=== PATIENT | female | born 1960 | race Hispanic/Latino ===

== ENCOUNTER 2018-05-02 09:48 | Observation (INO) | payer OTHER ==
--- OUTSIDE RECORDS SUMMARY | 2018-05-02 09:49 | XMS REPORT ---
:1960 [facility] [address] [place] [address] Dr. Arndt [address] [place] [id number] Care Team Providers Name Role Phone Unavailable Unavailable Unavailable Problems This patient has no known problems. Allergies, Adverse Reactions, Alerts This patient has no known allergies or adverse reactions. Medications This patient has no known medications.
--- NOTE | 2018-05-02 10:45 | RAD REPORT ---
EXAM DESCRIPTION: RAD - Chest Single View - 05/02/2018 10:36 am CLINICAL HISTORY: Chest pain;Cough Chest pain. COMPARISON: CHEST SINGLE VIEW dated 06/29/2008; CHEST SINGLE VIEW dated 05/08/2003 FINDINGS: Portable technique limits examination quality. The lungs are grossly clear. The heart is normal in size. No displaced fractures. IMPRESSION: No acute intrathoracic process suspected.
[2018-05-02 11:14] LABS: Absolute Lymphocytes (CBC) 1.2 K/uL (0.7-4.9); Absolute Monocytes 0.5 K/uL (0.1-1.3); Absolute Neutrophil 3.4 K/uL (1.8-8.0); Basophils % 1.4 % (0-1.3); Eosinophils % 4.5 % (0-4.4); Hematocrit 39.6 % (36.0-45.0); Lymphocytes % 22.5 % (15.3-44.8); MPV 7.2 fL (7.6-11.3); Monocytes % 9.3 % (3.3-12.3); RBC Red Blood Cell Count 4.67 M/uL (3.86-4.86)
[2018-05-02 11:16] LABS: Protime INR 1.1
--- NOTE | 2018-05-02 11:29 | ER ---
Nurse's Notes [facility] Name: Brenda Ledesma Age: 58 yrs Sex: Female : 1960 Arrival Date: 05/02/2018 Time: 09:51 Bed 20 Private MD: Diagnosis: Chest pain, unspecified;Lupus erythematosus Presentation: 05/02 09:51 Presenting complaint: EMS states: CHEST PAIN SINCE THIS AM. Transition of care: patient bp was not received from another setting of care. Onset of symptoms is unknown. Risk Assessment: Do you want to hurt yourself or someone else? Patient reports no desire to harm self or others. Initial Sepsis Screen: Does the patient meet any 2 criteria? No. Patient's initial sepsis screen is negative. Does the patient have a suspected source of infection? No. Patient's initial sepsis screen is negative. Care prior to arrival: Medication(s) given: ASA, 81 mg, x 4, IV initiated. 20 GA, in the left antecubital area. 09:51 Method Of Arrival: EMS: [facility] bp 09:51 Acuity: GLENNA 2 bp Triage Assessment: 09:56 General: Appears in no apparent distress. comfortable, obese, Behavior is cooperative, bp appropriate for age, anxious. Pain: Complains of pain in chest Pain currently is 4 out of 10 on a pain scale. Quality of pain is described as pressure. EENT: No signs and/or symptoms were reported regarding the EENT system. Neuro: Level of Consciousness is awake, alert, obeys commands, Oriented to person, place, time, situation, Appropriate for age. Cardiovascular: Rhythm is sinus rhythm. Respiratory: Airway is patent Respiratory effort is even, unlabored, Respiratory pattern is regular, symmetrical. GI: No signs and/or symptoms were reported involving the gastrointestinal system. : No signs and/or symptoms were reported regarding the genitourinary system. Derm: No deficits noted. Musculoskeletal: No deficits noted. Historical: - Allergies: No Known Allergies; bp - Home Meds: : Claritin 10 mg Oral tab 1 tab once daily [Active]; clonidine HCl 0.1 mg Oral tab 1 tab bp 2 times per day [Active]; clopidogrel 75 mg oral tab 1 tab once daily [Active]; - PMHx: : CVA; Lupus; GERD; Hypertension; bp - Immunization history:: Adult Immunizations up to date. - Social history:: Smoking status: Patient/guardian denies using tobacco. - Ebola Screening: : Patient negative for fever greater than or equal to 101.5 degrees Fahrenheit, and additional compatible Ebola Virus Disease symptoms Patient denies exposure to infectious person Patient denies travel to an Ebola-affected area in the 21 days before illness onset No symptoms or risks identified at this time. - Family history:: not pertinent. Screenin:02 Abuse screen: Denies threats or abuse. Denies injuries from another. Nutritional bp screening: No deficits noted. Tuberculosis screening: No symptoms or risk factors identified. Fall Risk No fall in past 12 months (0 pts). Secondary diagnosis (15 points) CVA, IV access (20 points). Ambulatory Aid- None/Bed Rest/Nurse Assist (0 pts). Gait- Impaired (20 pts.). Mental Status- Oriented to own ability (0 pts). Total Yen Fall Scale indicates High Risk Score (45 or more points). Fall prevention measures have been instituted. Side Rails Up X 2 Placed Close to Nursing Station 1:1 Attendant Assigned Frequent Obs/Assessments Occuring As available patient and family educated on Fall Prevention Program and Strategies. Assessment: 10:01 General: SEE TRIAGE NOTE. Pain: Complains of pain in chest Pain does not radiate. Pain bp began THIS AM. 11:00 Reassessment: PT TO CT, RESULTS PENDING. bp 12:33 Reassessment: ALL CURRENT ORDERS COMPLETE, DISPO PENDING. bp Vital Signs: 09:56 BP 109 / 54; Pulse 65; Resp 14; Temp 97; Pulse Ox 97% ; Weight 81.65 kg (R); bp 10:46 BP 119 / 96; Pulse 69; Resp 18; Temp 98.6(O); Pulse Ox 97% on R/A; mh5 12:30 BP 113 / 61; Pulse 67; Resp 14; Pulse Ox 97% ; bp 13:51 BP 103 / 48; Pulse 67; Resp 14; Pulse Ox 95% ; bp ED Course: 09:51 Patient arrived in ED. bp 09:51 Pawan French MD is Attending Physician. raina 09:52 Triage completed. bp 10:01 Arm band placed on. bp 10:02 EKG done, by photovoltaic fabrication technician. reviewed by Pawan French MD. at1 10:04 Maintain EMS IV. Dressing intact. Good blood return noted. Site clean \T\ dry. Gauge \T\ bp site: 20 GAUGE R AC. 10:05 Patient has correct armband on for positive identification. Placed in gown. Bed in low bp position. Call light in reach. Side rails up X2. surveillance system monitor on. Pulse ox on. NIBP on. 10:23 Herrera Cisneros, RN is Primary Nurse. bp 10:36 X-ray completed. Portable x-ray completed in exam room. Patient tolerated procedure jb2 well. 10:38 Chest Single View In Process Unspecified. EDMS 11:28 Sherwin Chen DO is Hospitalizing Provider. raina 12:00 US Extremity Venous W Compression Pardeep In Process Unspecified. EDMS 12:09 CT completed. Patient tolerated procedure well. Patient moved back from CT. vr 12:11 CT Chest For PE Angio In Process Unspecified. EDMS 14:05 No provider procedures requiring assistance completed. Patient admitted, IV remains in bp place. Patient maintains SpO2 saturation greater than 95% on room air. Administered Medications: 10:18 CANCELLED (Duplicate Order): Aspirin 162 mg PO once raina 10:30 Drug: NS 0.9% 1000 ml Route: IV; Rate: 125 ml/hr; Site: left antecubital; bp 13:52 Follow up: IV Status: Infusion continued upon admission; IV Intake: 375ml bp 11:45 Drug: Lovenox 80 mg Route: Sub-Q; Site: right lower abdomen; bp 12:30 Follow up: Response: No adverse reaction bp Intake: 13:52 IV: 375ml; Total: 375ml. bp Outcome: 11:28 Decision to Hospitalize by Provider. raina 14:05 Admitted to Tele accompanied by tech, via wheelchair, room 406, with chart, Report bp called to ADRIANNA RAUSCH 14:05 Condition: stable 14:05 Instructed on the need for admit. 14:33 Patient left the ED. iw Signatures: Dispatcher [employer] EDPawan Stovall MD MD cha Buechter, Jesse jb2 Debi Golden, RN RN Christy Hernandez Amanda, recreational therapy aide EKG Tat1 Adrianna Toledo 5 Herrera Cisneros, RN RN bp
--- NOTE | 2018-05-02 11:29 | EDPHYS ---
Physician Documentation [facility] Name: Brenda Ledesma Age: 58 yrs Sex: Female : 1960 Arrival Date: 05/02/2018 Time: 09:51 Bed 20 Private MD: ED Physician Pawan French HPI: 05/02 11:24 This 58 yrs old Female presents to ER via EMS with complaints of Chest Pain. raina 11:24 The patient or guardian reports chest pain that is located primarily in the anterior [facility] chest wall. Onset: this morning, today. The pain does not radiate. Associated signs and symptoms: The patient has no apparent associated signs or symptoms. The chest pain is described as a pressure. Duration: The patient or guardian reports a single episode, that is still ongoing, but improving. Severity of pain: At its worst the pain was moderate in the emergency department the pain has improved moderately. It is unknown whether or not the patient has had similar symptoms in the past. Historical: - Allergies: 09:56 No Known Allergies; bp - Home Meds: 09:56 Claritin 10 mg Oral tab 1 tab once daily [Active]; clonidine HCl 0.1 mg Oral tab 1 tab bp 2 times per day [Active]; clopidogrel 75 mg oral tab 1 tab once daily [Active]; - PMHx: 09:56 CVA; Lupus; GERD; Hypertension; bp - Immunization history:: Adult Immunizations up to date. - Social history:: Smoking status: Patient/guardian denies using tobacco. - Ebola Screening: : Patient negative for fever greater than or equal to 101.5 degrees Fahrenheit, and additional compatible Ebola Virus Disease symptoms Patient denies exposure to infectious person Patient denies travel to an Ebola-affected area in the 21 days before illness onset No symptoms or risks identified at this time. - Family history:: not pertinent. ROS: 11:24 Constitutional: Negative for fever, chills, and weight loss, Eyes: Negative for injury, raina pain, redness, and discharge, ENT: Negative for injury, pain, and discharge, Neck: Negative for injury, pain, and swelling, Respiratory: Negative for shortness of breath, cough, wheezing, and pleuritic chest pain, Abdomen/GI: Negative for abdominal pain, nausea, vomiting, diarrhea, and constipation, Back: Negative for injury and pain, : Negative for injury, bleeding, discharge, and swelling, MS/Extremity: Negative for injury and deformity, Skin: Negative for injury, rash, and discoloration, Neuro: Negative for headache, weakness, numbness, tingling, and seizure, Psych: Negative for depression, anxiety, suicide ideation, homicidal ideation, and hallucinations, Allergy/Immunology: Negative for hives, rash, and allergies, Endocrine: Negative for neck swelling, polydipsia, polyuria, polyphagia, and marked weight changes, Hematologic/Lymphatic: Negative for swollen nodes, abnormal bleeding, and unusual bruising. 11:24 Cardiovascular: Positive for chest pain. Exam: 11:24 Constitutional: This is a well developed, well nourished patient who is awake, alert, raina and in no acute distress. Head/Face: Normocephalic, atraumatic. Eyes: Pupils equal round and reactive to light, extra-ocular motions intact. Lids and lashes normal. Conjunctiva and sclera are non-icteric and not injected. Cornea within normal limits. Periorbital areas with no swelling, redness, or edema. ENT: Nares patent. No nasal discharge, no septal abnormalities noted. Tympanic membranes are normal and external auditory canals are clear. Oropharynx with no redness, swelling, or masses, exudates, or evidence of obstruction, uvula midline. Mucous membranes moist. Neck: Trachea midline, no thyromegaly or masses palpated, and no cervical lymphadenopathy. Supple, full range of motion without nuchal rigidity, or vertebral point tenderness. No Meningismus. Chest/axilla: Normal chest wall appearance and motion. Nontender with no deformity. No lesions are appreciated. Cardiovascular: Regular rate and rhythm with a normal S1 and S2. No gallops, murmurs, or rubs. Normal PMI, no JVD. No pulse deficits. Respiratory: Lungs have equal breath sounds bilaterally, clear to auscultation and percussion. No rales, rhonchi or wheezes noted. No increased work of breathing, no retractions or nasal flaring. Abdomen/GI: Soft, non-tender, with normal bowel sounds. No distension or tympany. No guarding or rebound. No evidence of tenderness throughout. Back: No spinal tenderness. No costovertebral tenderness. Full range of motion. Skin: Warm, dry with normal turgor. Normal color with no rashes, no lesions, and no evidence of cellulitis. MS/ Extremity: Pulses equal, no cyanosis. Neurovascular intact. Full, normal range of motion. Neuro: Awake and alert, GCS 15, oriented to person, place, time, and situation. Cranial nerves II-XII grossly intact. Motor strength 5/5 in all extremities. Sensory grossly intact. Cerebellar exam normal. Normal gait. Psych: Awake, alert, with orientation to person, place and time. Behavior, mood, and affect are within normal limits. Vital Signs: 09:56 BP 109 / 54; Pulse 65; Resp 14; Temp 97; Pulse Ox 97% ; Weight 81.65 kg (R); bp 10:46 BP 119 / 96; Pulse 69; Resp 18; Temp 98.6(O); Pulse Ox 97% on R/A; mh5 12:30 BP 113 / 61; Pulse 67; Resp 14; Pulse Ox 97% ; bp 13:51 BP 103 / 48; Pulse 67; Resp 14; Pulse Ox 95% ; bp MDM: 09:51 Patient medically screened. [facility] 11:26 Data reviewed: vital signs, nurses notes, lab test result(s), EKG, radiologic studies, raina plain films. 05/02 10:17 Order name: Basic Metabolic Panel; Complete Time: 13:27 [facility] 05/02 10:17 Order name: CBC with Diff; Complete Time: 13:27 [facility] 05/02 10:17 Order name: LFT's; Complete Time: 13:27 [facility] 05/02 10:17 Order name: Magnesium; Complete Time: 13:27 [facility] 05/02 10:17 Order name: NT PRO-BNP; Complete Time: 13:27 [facility] 05/02 10:17 Order name: PT-INR; Complete Time: 13:27 [facility] 05/02 10:17 Order name: Troponin (emerg Dept Use Only); Complete Time: 13:27 [facility] 05/02 10:17 Order name: Lipase; Complete Time: 13:27 [facility] 05/02 10:17 Order name: Blood Culture Adult (2) [facility] 05/02 10:17 Order name: Urine Culture [facility] 05/02 10:19 Order name: D-Dimer; Complete Time: 13:27 [facility] 05/02 10:23 Order name: Blood Culture EDUT 05/02 11:41 Order name: Urine Dipstick--Ancillary (enter results); Complete Time: 13:27 em1 05/02 10:17 Order name: XRAY Chest (1 view) [facility] 05/02 10:17 Order name: EKG; Complete Time: 10:19 [facility] 05/02 10:17 Order name: Cardiac monitoring; Complete Time: 10:24 [facility] 05/02 10:17 Order name: EKG - Nurse/Tech; Complete Time: 10:24 [facility] 05/02 10:17 Order name: IV Saline Lock; Complete Time: 10:25 [facility] 05/02 10:17 Order name: Labs collected and sent; Complete Time: 12:03 [facility] 05/02 10:17 Order name: O2 Per Protocol; Complete Time: 10:24 [facility] 05/02 10:17 Order name: O2 Sat Monitoring; Complete Time: 10:24 [facility] 05/02 10:17 Order name: Urine Dipstick-Ancillary (obtain specimen); Complete Time: 11:40 [facility] 05/02 10:23 Order name: Chest Single View; Complete Time: 11:24 EDUT 05/02 10:23 Order name: EKG Electrocardiogram [facility] 05/02 11:30 Order name: CT Chest For PE Angio; Complete Time: 13:27 [facility] 05/02 11:30 Order name: US Extremity Venous W Compression Pardeep; Complete Time: 13:27 [facility] Administered Medications: 10:18 CANCELLED (Duplicate Order): Aspirin 162 mg PO once [facility] 10:30 Drug: NS 0.9% 1000 ml Route: IV; Rate: 125 ml/hr; Site: left antecubital; bp 13:52 Follow up: IV Status: Infusion continued upon admission; IV Intake: 375ml bp 11:45 Drug: Lovenox 80 mg Route: Sub-Q; Site: right lower abdomen; bp 12:30 Follow up: Response: No adverse reaction bp Disposition: 05/02/18 11:28 Hospitalization ordered by Sherwin Chen for Observation. Preliminary diagnosis are Chest pain, unspecified, Lupus erythematosus. - Bed requested for Telemetry/MedSurg (observation). - Status is Observation. iw - Condition is Stable. - Problem is new. - Symptoms have improved. UTI on Admission? No Signatures: Dispatcher [employer] EDUT Pawan French MD MD cha Williams, Irene, RN MIRACLE iw Yousuf Toledo em1 Blayne, Herrera, RN RN bp Corrections: (The following items were deleted from the chart) 10:18 10:17 Aspirin 162 mg PO once ordered. raina raina 10:23 10:19 Basic Metabolic Panel ordered. EDMS EDMS 13:37 11:28 Hospitalization Ordered by Sherwin Chen DO for Observation. Preliminary em1 diagnosis is Chest pain, unspecified; Lupus erythematosus. Bed requested for Telemetry/MedSurg (observation). Status is Observation. Condition is Stable. Problem is new. Symptoms have improved. UTI on Admission? No. raina 14:33 13:37 05/02/2018 11:28 Hospitalization Ordered by Sherwin Chen DO for Observation. iw Preliminary diagnosis is Chest pain, unspecified; Lupus erythematosus. Bed requested for Telemetry/MedSurg (observation). Status is Observation. Condition is Stable. Problem is new. Symptoms have improved. UTI on Admission? No. em1
[2018-05-02 11:35] LABS: ALT/SGPT 32 U/L (12-78); AST/SGOT 28 U/L (15-37); Albumin 3.4 g/dL (3.4-5.0); Alkaline Phosphatase 76 U/L (45-117); BUN Blood Urea Nitrogen 10 mg/dL (7-18); Bicarbonate 30 mmol/L (21-32); Bilirubin Direct < 0.1 mg/dL (0-0.2); Bilirubin Total 0.3 mg/dL (0.2-1.0); Glucose Level 92 mg/dL (74-106); Lipase 201 U/L (73-393); NT PRO-BNP 33 pg/mL (<125); Potassium 3.7 mmol/L (3.5-5.1); Protein, Total 7.7 g/dL (6.4-8.2); Sodium Level 144 mmol/L (136-145); Troponin (Emerg Dept Use Only) < 0.02 ng/mL (0.0-0.045)
--- NOTE | 2018-05-02 12:04 | EKG ---
Test Date: 2018-05-02 Test Time: 09:55:11 Mold Making Supervisor: CYNTHIA MEASUREMENT RESULTS: Intervals: Rate: 68 [place]: 158 QRSD: 80 QT: 398 QTc: 423 [place]: P: 23 [place]: 158 QRS: 65 T: 48 INTERPRETIVE STATEMENTS: Normal sinus rhythm with sinus arrhythmia Normal ECG Compared to ECG 06/30/2008 05:55:47 No significant changes Electronically Signed On 05-02-18 12:02:45 PIECE DYER by Andres Jiménez
--- NOTE | 2018-05-02 12:06 | RAD REPORT ---
EXAM DESCRIPTION: US - Extrem Venous W Compress Pardeep - 05/02/2018 12:00 pm CLINICAL HISTORY: PAIN Bilateral leg edema and swelling. COMPARISON: No comparisons TECHNIQUE: Real-time sonographic interrogation of the left and right lower extremity deep venous sys tems was performed. FINDINGS: Normal compressibility, flow augmentation, phasic flow and spontaneous flow is identified in both the left and right lower extremity deep venous systems. IMPRESSION: No sonographic evidence of left or right lower extremity deep venous thrombosis.
[2018-05-02 12:09] LABS: Urine Blood NEGATIVE (NEG); Urine Glucose NEGATIVE (NEG); Urine Protein 1+ (NEG); Urine pH 5.5 (5.0-7.0)
[2018-05-02] MEDS ORDERED: NA CHLORIDE 0.9% 1,000 ML ONE (12:10)
[2018-05-02] MEDS ORDERED: ENOXAPARIN 80 MG/0.8 ML SQ ONE (12:10)
--- NOTE | 2018-05-02 12:19 | RAD REPORT ---
EXAM DESCRIPTION: CT - Chest For Pe Angio - 05/02/2018 12:11 pm CLINICAL HISTORY: Chest pain. CHEST PAIN COMPARISON: No comparisons TECHNIQUE: CT angiogram of the pulmonary arteries was performed with MIP. All CT scans are performed using dose optimization technique as appropriate and may include automated exposure control or mA/KV adjustment according to patient size. FINDINGS: No evidence of pulmonary thromboembolism. No acute aortic finding demonstrated. The lungs are clear. No significant pericardial or pleural fluid. No concerning bony finding. Fatty liver. IMPRESSION: No evidence of pulmonary thromboembolism. No acute lung findings.
--- NOTE | 2018-05-02 13:47 | P.HP ---
Certification for Inpatient Patient admitted to: Observation With expected LOS: <2 Midnights Patient will require the following post-hospital care: Other (assisted) Practitioner: I am a practitioner with admitting privileges, knowledge of patient current condition, hospital course, and medical plan of care. Services: Services provided to patient in accordance with Admission requirements found in Title 42 Section 412.3 of the Code of Federal Regulations Patient History Date of Service: 05/02/18 Primary Care Provider: MELANIA physician Reason for admission: Chest pain History of Present Illness: 58-year-old female presented to the emergency room with chest pain. Patient with history of aphasia related to prior stroke. Patient also with history of hypertension. Patient reports chest pain to the left side. No significant nausea or vomiting. She does report some palpitations. Otherwise no other complaints noted by the patient. [facility] jail to further evaluate. Upon initial valuation the emergency room. White count within normal range. Sodium 144, potassium 3.7, BUN of 10, creatinine 0.7 with a GFR of 81. Glucose 92. Initial troponin unremarkable. Urinalysis unremarkable. D-dimer elevated. Chest x-ray unremarkable. CT angiogram of the chest shows no pulmonary embolism or pneumonia. Venous Doppler negative. Due to the nature of her symptoms the patient was admitted for further evaluation. When I saw the patient ER, patient with aphasia but able to communicate with writing and hand gestures. History was difficult due to this. I was able to get in contact with a family member. He reports that the patient is currently in a jail. He reports family does not keep close contact with her since she is in the jail. He reports that he would try to get a hold of her son who looks out after her from time to time. Home medications list reviewed: No - Past Medical/Surgical History Diabetic: No -: History of CVA with residual aphasia -: Hypertension -: CAD Past Surgical History: Unable to obtain Psychosocial/ Personal History: Patient lives in a jail. - Family History Family History: Reviewed- Non-Contributory - Social History Smoking Status: Never smoker Alcohol use: No CD- Drugs: No Caffeine use: No Place of Residence: Care Home Review of Systems General: As per HPI Eyes: Unremarkable ENT: Unremarkable Respiratory: Unremarkable Cardiovascular: Chest Pain, Palpitations, As per HPI Gastrointestinal: Unremarkable Genitourinary: Unremarkable Musculoskeletal: Unremarkable Integumentary: Unremarkable Neurological: Unremarkable Lymphatics: Unremarkable Physical Examination - Physical Exam General: Alert, In no apparent distress, Cooperative HEENT: Atraumatic, Mucous membr. moist/pink, Other (Patient with residual aphasia) Neck: Supple Respiratory: Clear to auscultation bilaterally, Normal air movement Cardiovascular: Normal pulses, Regular rate/rhythm Gastrointestinal: Normal bowel sounds, Soft and benign, Non-distended, No tenderness, No masses, No rebound, No guarding Musculoskeletal: No erythema, No tenderness, No warmth Integumentary: No tenderness/swelling, No erythema, No warmth, No cyanosis Neurological: Normal speech, Normal strength at 5/5 x4 extr, Normal tone, Normal affect - Studies Laboratory Data (last 24 hrs) 05/02/18 10:45: PT 13.0 H, INR 1.10 05/02/18 10:45: Sodium 144, Potassium 3.7, BUN 10, Creatinine 0.73, Glucose 92, Magnesium 2.0, Total Bilirubin 0.3, AST 28, ALT 32, Alkaline Phosphatase 76, Lipase 201 05/02/18 10:05: WBC 5.4, Hgb 13.5, Hct 39.6, Plt Count 355 Assessment and Plan - Plan Impression: Chest pain, atypical Hypertension History of CAD History of CVA with residual aphasia Plan: Chest pain, atypical: Will continue monitor patient on telemetry. Will monitor cardiac enzymes. Will obtain echocardiogram. Will also order stress test to further assess. Cardiology consulted. Will place on beta alaina. Will need to obtain home medications from jail. Will continue with aspirin, DVT prophylaxis-Lovenox, Lipitor. Hypertension: Continue as above. Will need to obtain medications from jail. History of CAD: Patient reports a history of CAD but no prior stent or surgery. History of CVA with residual aphasia: Patient with residual aphasia. This makes communicating difficult. Overall stable. Discharge Plan: Home Plan to discharge in: 24 Hours - Advance Directives Does patient have a Living Will: No Does patient have a Durable POA for Healthcare: No - Code Status/Comfort Care Code Status Assessed: Yes (Patient full code.) Time Spent Managing Pts Care (In Minutes): 55
[2018-05-02] MEDS ORDERED: MORPHINE 4 MG/ML SYR IV PRN (15:12)
[2018-05-02] MEDS ORDERED: ONDANSETRON 4 MG/2 ML VIAL IV PRN (15:12)
[2018-05-02] MEDS ORDERED: ACETAMINOPHEN 500 MG TAB PO PRN (15:12)
[2018-05-02] MEDS ORDERED: NITROGLYCERIN 0.4 MG/TAB SL PRN (15:25)
[2018-05-02] MEDS: ENOXAPARIN 40 MG/0.4 ML SQ SCH ×2 (16:00→17:10)
[2018-05-02 16:08] LABS: CKMB Creatine Kinase MB 1.6 ng/mL (0.3-3.6); Creatine Phosphokinase 97 U/L (26-192); Troponin I < 0.02 ng/mL (0.0-0.045)
[2018-05-02] MEDS: METOPROLOL TAR 25 MG TAB PO SCH (17:11)
[2018-05-02] MEDS ORDERED: ATORVASTATIN 40 MG TAB PO SCH (21:00)
[2018-05-03 00:21] LABS: CKMB Creatine Kinase MB 1.4 ng/mL (0.3-3.6); Creatine Phosphokinase 87 U/L (26-192); Troponin I < 0.02 ng/mL (0.0-0.045)
[2018-05-03 06:04] LABS: Absolute Lymphocytes (CBC) 1.6 K/uL (0.7-4.9); Absolute Monocytes 0.5 K/uL (0.1-1.3); Absolute Neutrophil 3.4 K/uL (1.8-8.0); Basophils % 1.5 % (0-1.3); Eosinophils % 4.5 % (0-4.4); Hematocrit 40.4 % (36.0-45.0); Lymphocytes % 26.5 % (15.3-44.8); MPV 7.4 fL (7.6-11.3); Monocytes % 9.1 % (3.3-12.3); RBC Red Blood Cell Count 4.74 M/uL (3.86-4.86)
[2018-05-03 06:23] LABS: Potassium 3.8 mmol/L (3.5-5.1)
[2018-05-03] MEDS ORDERED: POTASSIUM CL SA 10 MEQ TAB PO ONE (06:29)
[2018-05-03] MEDS ORDERED: REGADENOSON 0.4 MG/5 ML SYR IV ONE (08:30)
[2018-05-03] MEDS ORDERED: ASPIRIN EC 81 MG TAB PO SCH (09:00)
[2018-05-03] MEDS: ENOXAPARIN 40 MG/0.4 ML SQ SCH (10:22)
[2018-05-03] MEDS: METOPROLOL TAR 25 MG TAB PO SCH (10:23)
--- NOTE | 2018-05-03 11:15 | RAD REPORT ---
EXAM DESCRIPTION: NM - Rest Stress Cardiac Imaging - 05/03/2018 10:34 am CLINICAL HISTORY: Chest pain. COMPARISON: 2008 TECHNIQUE: The patient was administered approximately 10mCi of Tc 99m Sestamibi prior to resting SPE CT imaging of the heart. The patient was then administered approximately 30 mCi of Tc 99m Sestamibi f ollowing exercise or pharmacologic stress. Multiplanar SPECT images were reviewed. FINDINGS: There is uniformity of radiotracer uptake involving the entire left ventricular myocardiu m. The left ventricular ejection fraction equals 62% IMPRESSION: There is no evidence of a myocardial perfusion defect
--- NOTE | 2018-05-03 13:37 | CON ---
Chief Complaint: Chest pain. History Of Present Illness: Ms. Ledesma [facility] in a [facility]. She is aphasic, expressive aphasia fro m a stroke. She was sent to the emergency room by the [facility] staff. They were concerned she w as telling them she had chest pain. She seems to point to her chest, says sometimes she feels uncomf ortable. She has never had myocardial infarction. She has had strokes. Never had any stents or byp ass surgeries. She takes Mylanta, acetaminophen, clonidine, Plavix, vitamin B12, Flonase, multivitam ins, and loratadine. She has never had any vascular surgery in the past. Her strokes have been of u ncertain cause. The patient also says sometimes she feels her heart fluttering, so at the time she i s discharged, she should probably be given an event monitor or have an implanted LINQ device to see i f her stroke might have been caused by atrial fibrillation. We do not see any atrial fibrillation si nce she has been here. Physical Examination: General: She is alert, oriented, aphasic, but she understands speech, responds nonverbally. She is 5 feet 5 inches, 180 pounds. Lungs: Clear. Heart: Within normal limits. Abdomen: Soft. Extremities: Normal pulses. The patient denies tobacco use. Laboratory Data: Her EKG is normal. Telemetry shows no atrial fibrillation. All of her laboratory exams are negative for this being an acute coronary syndrome. Recommendation: She is already scheduled for echocardiogram and nuclear stress test. If those are n ormal, she could be discharged. I would recommend an event monitor, see if she has atrial fibrillati on causing her symptoms. She is not in atrial fibrillation now. It is possible that she has paroxysmal atrial fibrillation that resolved before she got here. TI/ESPERANZA Voice ID: [id number] Report ID: [id number]
--- NOTE | 2018-05-03 13:57 | P.DS ---
Admission Date: 05/02/18 Discharge Date: 05/03/18 Primary Care Provider: MELANIA physician Disposition: TRANSFER TO [facility] Discharge Condition: GOOD Reason for Admission: Chest pain Consultations: Cardiology: Dr. Jiménez Procedures: CT Scan: COMPARISON: No comparisons TECHNIQUE: CT angiogram of the pulmonary arteries was performed with MIP. All CT scans are performed using dose optimization technique as appropriate and may include automated exposure control or mA/KV adjustment according to patient size. FINDINGS: No evidence of pulmonary thromboembolism. No acute aortic finding demonstrated. The lungs are clear. No significant pericardial or pleural fluid. No concerning bony finding. Fatty liver. IMPRESSION: No evidence of pulmonary thromboembolism. No acute lung findings. Venous doppler: COMPARISON: No comparisons TECHNIQUE: Real-time sonographic interrogation of the left and right lower extremity deep venous systems was performed. FINDINGS: Normal compressibility, flow augmentation, phasic flow and spontaneous flow is identified in both the left and right lower extremity deep venous systems. IMPRESSION: No sonographic evidence of left or right lower extremity deep venous thrombosis. Cardiac Stress test: COMPARISON: 2009 TECHNIQUE: The patient was administered approximately 10mCi of Tc 99m Sestamibi prior to resting SPECT imaging of the heart. The patient was then administered approximately 30 mCi of Tc 99m Sestamibi following exercise or pharmacologic stress. Multiplanar SPECT images were reviewed. FINDINGS: There is uniformity of radiotracer uptake involving the entire left ventricular myocardium. The left ventricular ejection fraction equals 62% IMPRESSION: There is no evidence of a myocardial perfusion defect Medical problem list: Chest pain, atypical Hypertension History of CVA with residual expressive aphasia GERD Chronic allergic rhinitis Brief History of Present Illness: 58-year-old female presented to the emergency room with chest pain. Patient with history of aphasia related to prior stroke. Patient also with history of hypertension. Patient reports chest pain to the left side. No significant nausea or vomiting. She does report some palpitations. Otherwise no other complaints noted by the patient. [facility] to further evaluate. Upon initial valuation the emergency room. White count within normal range. Sodium 144, potassium 3.7, BUN of 10, creatinine 0.7 with a GFR of 81. Glucose 92. Initial troponin unremarkable. Urinalysis unremarkable. D-dimer elevated. Chest x-ray unremarkable. CT angiogram of the chest shows no pulmonary embolism or pneumonia. Venous Doppler negative. Due to the nature of her symptoms the patient was admitted for further evaluation. When I saw the patient ER, patient with aphasia but able to communicate with writing and hand gestures. History was difficult due to this. I was able to get in contact with a family member. He reports that the patient is currently in a [facility]. He reports family does not keep close contact with her since she is in the [facility]. He reports that he would try to get a hold of her son who looks out after her from time to time. Hospital Course: Patient presented with chest pain. This was atypical. Cardiac enzymes unremarkable. Patient seen and evaluated by Cardiology. Patient had cardiac stress tests and echocardiogram. Cardiac stress test showed no stress-induced ischemia. Cardiology mentions that the patient may have underlying a arrhythmia or paroxysmally atrial fibrillation. No atrial fibrillation was identified during her stay. Patient will return to the [facility]. Patient will continue with her Plavix 75 mg daily. Cardiology recommends that she be followed up with cardiology within 1-2 weeks. Patient will need Holter monitor is well to further evaluate. Will see if this can be arranged prior to discharge. Patient with hypertension. Medications adjusted due to her stay. Clonidine discontinued. Patient now on metoprolol. At discharge she will continue with metoprolol 12.5 mg 1 pill twice daily. Recommendation is to maintain blood pressures less 150/80. Further adjustment can be done by [facility] physician. Patient with history of CVA with residual expressive aphasia. This is currently stable at this time. Patient may continue with Plavix 75 mg daily. Patient will also be placed on Lipitor 40 mg daily. Patient likely with GERD. Patient may continue with Pepcid 20 mg 1 pill twice daily. Patient has chronic allergic rhinitis. Patient may continue with Claritin and nasal spray as directed. Vital Signs/Physical Exam: Temp Pulse Resp BP Pulse Ox 97.2 F 58 16 146/71 H 96 05/03/18 08:00 05/03/18 08:00 05/03/18 08:00 05/03/18 08:00 05/03/18 08:00 General: Alert, In no apparent distress, Cooperative HEENT: Atraumatic Neck: Supple Respiratory: Clear to auscultation bilaterally, Normal air movement Cardiovascular: Normal pulses, Regular rate/rhythm Gastrointestinal: Normal bowel sounds, Soft and benign, Non-distended, No tenderness, No masses, No rebound, No guarding Musculoskeletal: No erythema, No tenderness, No warmth Integumentary: No tenderness/swelling, No erythema, No warmth, No cyanosis Neurological: Normal strength at 5/5 x4 extr, Normal tone, Normal affect, Abnormal speech (Residual expressive aphasia) Laboratory Data at Discharge: WBC 5.9 K/uL (4.3-10.9) 05/03/18 05:41 Hgb 13.8 g/dL (12.0-15.0) 05/03/18 05:41 Hct 40.4 % (36.0-45.0) 05/03/18 05:41 Plt Count 359 K/uL (152-406) 05/03/18 05:41 PT 13.0 SECONDS (9.5-12.5) H 05/02/18 10:45 INR 1.10 05/02/18 10:45 Sodium 143 mmol/L (136-145) 05/03/18 05:41 Potassium 3.8 mmol/L (3.5-5.1) 05/03/18 05:41 BUN 13 mg/dL (7-18) 05/03/18 05:41 Creatinine 0.72 mg/dL (0.55-1.3) 05/03/18 05:41 Glucose 93 mg/dL (74-106) 05/03/18 05:41 Magnesium 2.0 mg/dL (1.8-2.4) 05/03/18 05:41 Total Bilirubin 0.3 mg/dL (0.2-1.0) 05/02/18 10:45 AST 28 U/L (15-37) 05/02/18 10:45 ALT 32 U/L (12-78) 05/02/18 10:45 Alkaline Phosphatase 76 U/L (45-117) 05/02/18 10:45 Troponin I < 0.02 ng/mL (0.0-0.045) 05/02/18 23:13 Triglycerides 119 mg/dL (<150) 05/03/18 05:41 Cholesterol 165 mg/dL (<200) 05/03/18 05:41 HDL Cholesterol 41 mg/dL (40-60) 05/03/18 05:41 Cholesterol/HDL Ratio 4.02 05/03/18 05:41 Lipase 201 U/L (73-393) 05/02/18 10:45 Home Medications: Acetaminophen 2 cap PO Q4H PRN 05/02/18 Acetaminophen with Codeine [Acetaminophen-Cod #3 Tablet] 1 tab PO Q4H PRN Clopidogrel Bisulfate [Plavix*] 75 mg PO DAILY 05/02/18 Cyanocobalamin (Vitamin B-12) [B-12] 500 mcg PO DAILY 05/02/18 Fluticasone Propionate [Flonase Allergy Relief] 1 puff IH DAILY 05/02/18 Loratadine [Claritin*] 10 mg PO DAILY 05/02/18 Multivitamin with Minerals [Multivitamins with Minerals] 1 tab PO DAILY Mylanta 30 ml PO Q8H PRN 05/02/18 Atorvastatin Calcium [Lipitor] 40 mg PO BEDTIME #30 tab 05/03/18 Famotidine [Pepcid] 20 mg PO BID #60 tab 05/03/18 Metoprolol Tartrate [Lopressor*] 12.5 mg PO BID 6AM 6PM #30 tab 05/03/18 New Medications: Atorvastatin Calcium [Lipitor] 40 mg PO BEDTIME #30 tab Famotidine [Pepcid] 20 mg PO BID #60 tab Metoprolol Tartrate [Lopressor*] 12.5 mg PO BID 6AM 6PM #30 tab Patient Discharge Instructions: 1. Patient may return to [facility]. 2. Patient presented with chest pain. This was atypical. Cardiac enzymes unremarkable. Patient seen and evaluated by Cardiology. Patient had cardiac stress tests and echocardiogram. Cardiac stress test showed no stress-induced ischemia. Cardiology mentions that the patient may have underlying arrhythmia or paroxysmally atrial fibrillation. No atrial fibrillation was identified during her stay. Patient will [facility] to the [facility]. Patient will continue with her Plavix 75 mg daily. Cardiology recommends that she be followed up with cardiology within 1-2 weeks. Patient will need Holter monitor is well to further evaluate. Will see if this can be arranged prior to discharge. 3. Patient with hypertension. Medications adjusted due to her stay. Clonidine discontinued. Patient now on metoprolol. At discharge she will continue with metoprolol 12.5 mg 1 pill twice daily. Recommendation is to maintain blood pressures less 150/80. Further adjustment can be done by [facility] physician. 4. Patient with history of CVA with residual expressive aphasia. This is currently stable at this time. Patient may continue with Plavix 75 mg daily. Patient will also be placed on Lipitor 40 mg daily. 5. Patient likely with GERD. Patient may continue with Pepcid 20 mg 1 pill twice daily. 6. Patient has chronic allergic rhinitis. Patient may continue with Claritin and nasal spray as directed. Diet: AHA Activity: Fall precautions Time spent managing pt's care (in minutes): 55
--- NOTE | 2018-05-03 14:07 | TREADPHA ---
DX: CHEST PAIN Date of Study: 05/03/2018 Ht: 5 5 Wt: 180 lb 0 oz Consulting Physician: NIKHIL MEDICATIONS: TYLENOL, ASPIRIN, LIPITOR, LOVENOX, LOPRESSOR, ZOFRAN HISTORY: 58 YEAR OLD FEMALE, COMPLAINTS OF CHEST PAIN, LUPUS. HISTORY OF CEREBRAL VASCULAR ACCIDENT, LUPUS, GERD, HYPERTENSION, NON-SMOKER, NON-DRINKER PHYSICIAL EXAMINATION: RESTING B.P.: 128/82 RESTING H.R.: 70 RESTING EKG: SINUS, SINUS ARRHYTHMIA PROTOCOL: LEXISCAN EXERCISE TIME: 3:30 B.P. AT PEAK STRESS: 140/78 IMPRESSION: LEXISCAN INJECTED, FOLLOWED BY CARDIOLITE PER PROTOCOL. SEE NUCLEAR MEDICINE REPORT. NO SUPRAVENTRICULAR TACHYCARDIA. NO VENTRICULAR TACHYCARDIA. NO PREMATURE ATRIAL COMPLEXES. NO PREMATURE VENTRICULAR COMPLEXES. PATIENT REPORTED NO CHEST PAIN, OR TIGHTNESS THROUGHOUT PROCEDURE. NON-DIAGNOSTIC ELECTROCARDIOGRAM WITH LEXISCAN STRESS.
--- NOTE | 2018-05-03 14:34 | ECHO ---
HEIGHT: 5 ft 5 in WEIGHT: 180 lb 0 oz DATE OF STUDY: 05/03/[address]: Sherwin Chen DO 2-DIMENSIONAL: YES M.MODE: YES DOPPLER: YES COLOR FLOW: YES TDS: PORTABLE: DEFINITY: BUBBLE STUDY: DIAGNOSIS: CHEST PAIN CARDIAC HISTORY: CATHERIZATION: NO SURGERY: NO PROSTHETIC VALVE: NO PACEMAKER: NO MEASUREMENTS (cm) DIASTOLIC (NORMALS) SYSTOLIC (NORMALS) IVSd 1.1 (0.6-1.2) LA Diam 2.6 (1.9-4.0) LVEF 62% LVIDd 2.9 (3.5-5.7) LVIDs 2.0 (2.0-3.5) %FS 32% LVPWd 1.1 (0.6-1.2) Ao Diam 2.8 (2.0-3.7) 2 DIMENSIONAL ASSESSMENT: RIGHT ATRIUM: NORMAL LEFT ATRIUM: NORMAL RIGHT VENTRICLE: NORMAL LEFT VENTRICLE: NORMAL TRICUSPID VALVE: NORAML MITRAL VALVE: NORMAL PULMONIC VALVE: NORMAL AORTIC VALVE: NORMAL PERICARDIAL EFFUSION: NONE AORTIC ROOT: NORMAL LEFT VENTRICULAR WALL MOTION: NORMAL DOPPLER/COLOR FLOW: MILD TRICUSPID REGURGITATION. NORMAL RIGHT VENTRICULAR SYSTOLIC PRESSURE. COMMENTS: NORMAL 2-DIMENSIONAL ECHOCARDIOGRAM. MILD TRICUSPID REGURGITATION. TECHNOLOGIST: MÓNICA RICO
== END 2018-05-03 17:04 ==
LOC: ER 09:48 → ERHOLD 12:26 → 4TH 14:06
PROVIDERS: ADMIT Family Medicine; ATTEND Family Medicine
DX: R07.89 Other chest pain (principal); I10 Essential (primary) hypertension; I69.320 Aphasia following cerebral infarction; K21.9 Gastro-esophageal reflux disease without esophagitis; J30.9 Allergic rhinitis, unspecified; I25.10 Atherosclerotic heart disease of native coronary artery without angina pectoris
CPT/HCPCS: 36415; 71045; 71275; 78452; 80048 ×2; 80061; 80076; 81003; 82550 ×2; 82553 ×2; 83690; 83735 ×2; 83880; 84145; 84484 ×3; 85025 ×2; 85379; 85610; 87040 ×2; 87077; 87086; 87088; 87186; 87205; 93005; 93017; 93306; 93970; 96360; 96361; 96372; 99285; A9500; G0378 ×2; J1650 ×3; J2785; J7030; Q9967